=== PATIENT | male | born 1940 | race Two or more races ===

== ENCOUNTER 2019-07-30 12:16 | Emergency (ER) | payer MEDICARE, MEDICAID ==
[~2019-07-30] VITALS: Ht 170.2 cm; Wt 70.8 kg
--- NOTE | 2019-07-30 12:32 | NUR ---
PT CAME TO THE ED C/O R WRIST SKIN TEAR. PT AAOX4, VSS, BREATHING EVEN AND UNLABOR W/ NAD, AMBULATORY. PT CONNECTED TO THE MONITOR
[2019-07-30] MEDS ORDERED: BENZOIN COMPOUND TINCT 60 ML BOTTLE ONE (12:34)
--- NOTE | 2019-07-30 12:35 | NUR ---
TECH AT [facility] FOR WOUND CLEANING AND DRESSING
[2019-07-30] MEDS ORDERED: TDAP [DIPH/PERTUSSIS/TET] 0.5 ML VIAL IM ONE ×2 (12:48→13:00)
[2019-07-30 12:56] VITALS: BP 135/87
--- NOTE | 2019-07-30 12:56 | NUR ---
Patient discharged to home in stable condition. Written and verbal after care instructions given. Patient verbalizes understanding of instruction.
== END 2019-07-30 12:56 | disposition home or self-care (01) ==
LOC: ER 12:16
DX: S51.811A Laceration without foreign body of right forearm, initial encounter (principal); I25.2 Old myocardial infarction; W14.XXXA Fall from tree, initial encounter; Y93.89 Activity, other specified; Y92.89 Other specified places as the place of occurrence of the external cause; Y99.8 Other external cause status
CPT/HCPCS: 90471; 90715; 99283; A6403